=== PATIENT | male | born 1965 | race Hispanic/Latino ===

== ENCOUNTER 2024-01-26 23:01 | Emergency (ER) | payer BC, SELFPAY ==
[2024-01-26] MEDS ORDERED: Lidocaine 1% PF 5 ML VIAL ONE (23:38)
[2024-01-27] MEDS ORDERED: Doxycycline 100 MG CAP ONE (00:56)
== END 2024-01-27 01:12 | disposition home or self-care (01) ==
LOC: ERS 23:01
DX: L03.012 Cellulitis of left finger (principal); L02.512 Cutaneous abscess of left hand; F17.210 Nicotine dependence, cigarettes, uncomplicated; X58.XXXA Exposure to other specified factors, initial encounter; Z55.6 Problems related to health literacy; Z75.8 Other problems related to medical facilities and other health care
CPT/HCPCS: 26010